=== PATIENT | female | born 1965 | race Caucasian/White ===

== ENCOUNTER → 2017-10-04 | Outpatient (CLI) | payer OTHER ==
[~2017-10-04] MED LIST: AMOXICILLIN 50500 MG PO; ATORVASTATIN CA40 MG PO; BRILINTA90 MG PO; LANTUS100 UNIT/M SUBQ; LISINOPRIL10 MG PO; LOPRESSOR25 PO; METFORMIN HCL500 MG PO; NITROGLYCERIN0.4 MG SUBLING; VICTOZA0.6 MG/0.1 SUBQ
[2017-10-04 09:39] LABS: CALCIUM 8.6 mg/dL (8.5-10.1); CREATININE 0.7 mg/dL (0.6-1.3); POTASSIUM 4.7 mmol/L (3.5-5.1)
== END ==
LOC: M.LAB 08:39
PROVIDERS: Nurse Practitioner
DX: I10 Essential (primary) hypertension (principal); E11.9 Type 2 diabetes mellitus without complications

== ENCOUNTER → 2017-11-15 | Outpatient (CLI) | payer OTHER ==
[2017-11-15 09:27] LABS: CALCIUM 8.3 mg/dL (8.5-10.1); CREATININE 0.8 mg/dL (0.6-1.3); POTASSIUM 4.1 mmol/L (3.5-5.1)
== END ==
LOC: M.LAB 08:40
PROVIDERS: Nurse Practitioner
DX: I10 Essential (primary) hypertension (principal); E78.5 Hyperlipidemia, unspecified; E11.9 Type 2 diabetes mellitus without complications

== ENCOUNTER → 2018-01-14 | Outpatient (CLI) | payer OTHER ==
[2018-01-14 09:25] LABS: ABSOLUTE EOSINOPHILS 0.2 thou/uL (0.0-0.7); ABSOLUTE LYMPHOCYTES 1.5 thou/uL (0.8-5.3); ABSOLUTE MONOCYTES 0.4 thou/uL (0.0-1.2); ABSOLUTE NEUTROPHILS 3.6 thou/uL (1.6-8.1); BASOPHILS 0.5 %; EOSINOPHILS 4.3 %; HEMATOCRIT 37.3 % (37.0-47.0); LYMPHOCYTES 26.3 %; MCH 28.7 pg (26.0-34.0); MCHC 32.2 g/dL (28.0-37.0); MCV 89.2 fL (80.0-100.0); MONOCYTES 7.1 %; NUCLEATED RBCS 0 /100WBC; PLATELET COUNT* 208 thou/uL (150-400); POLYS 61.8 %; RBC 4.18 mil/uL (4.20-5.00); RDW-CV 13.8 % (10.5-14.5); WBC 5.8 thou/uL (4.0-11.0)
[2018-01-14 09:39] LABS: CREATININE 0.8 mg/dL (0.6-1.3); POTASSIUM 4.9 mmol/L (3.5-5.1); TOTAL BILIRUBIN 0.2 mg/dL (<0.1-1.0); TOTAL PROTEIN 7.1 g/dL (6.4-8.2)
[2018-01-15 02:11] LABS: GLYCOHEMOGLOBIN (HGB A1C) 9.4 % (4.8-5.6)
== END ==
LOC: M.LAB 09:03
PROVIDERS: Family Medicine
DX: E11.9 Type 2 diabetes mellitus without complications (principal); I10 Essential (primary) hypertension; E78.5 Hyperlipidemia, unspecified; Z79.4 Long term (current) use of insulin

== ENCOUNTER → 2018-03-05 | Outpatient (CLI) | payer OTHER | LOC: M.MRI 13:00 | DX: S83.412A Sprain of medial collateral ligament of left knee, initial encounter (principal); S80.02XA Contusion of left knee, initial encounter; M22.42 Chondromalacia patellae, left knee; X58.XXXA Exposure to other specified factors, initial encounter; Y93.89 Activity, other specified; Y92.89 Other specified places as the place of occurrence of the external cause; Y99.8 Other external cause status ==

== ENCOUNTER 2019-06-13 11:49 | Emergency (ER) | payer OTHER ==
[~2019-06-13] VITALS: Ht 157.5 cm; Wt 79.4 kg
[2019-06-13] MEDS ORDERED: ASPIR 8181 M1 PO (12:07)
[2019-06-13] MEDS ORDERED: CLARITIN10 MG PO (12:07)
[2019-06-13] MEDS ORDERED: TRULICITY0.75 MG/0. SUBQ (12:07)
[2019-06-13] MEDS ORDERED: NOLVADEX20 MG PO (12:08)
[2019-06-13] MEDS ORDERED: KEFLEX250 M1 PO (12:25)
[2019-06-13 12:32] VITALS: BP 186/90
== END 2019-06-13 12:33 | disposition home or self-care (01) ==
LOC: M.ERS 11:49
DX: S61.012A Laceration without foreign body of left thumb without damage to nail, initial encounter (principal); E11.9 Type 2 diabetes mellitus without complications; G43.909 Migraine, unspecified, not intractable, without status migrainosus; W26.0XXA Contact with knife, initial encounter; Y93.89 Activity, other specified; Y92.89 Other specified places as the place of occurrence of the external cause; Y99.8 Other external cause status

== ENCOUNTER → 2019-07-22 | Outpatient (CLI) | payer OTHER ==
[~2019-07-22] MED LIST changes: +ASPIR 8181 M1 PO; +CLARITIN10 MG PO; +KEFLEX250 M1 PO; +NOLVADEX20 MG PO; +TRULICITY0.75 MG/0. SUBQ
--- NOTE | 2019-07-22 16:10 | CARDNUC ---
[place] [address] CARDIAC NUCLEAR IMAGING REPORT Name: Ricco CORONADOVONNJasmin Cifuentes Room: [facility]#: [id number] Admission: 07/22/19 Attend Phys: Faizan Dykes MD Discharge: Date of : 65 Date of Service: 07/22/19 1608 Report #: [id number] THIS REPORT FOR: cc: Nic Heath Vincent R. DO Liston,Chris Meyer MD [facility] ~ APPROVED REPORT Study performed: 07/22/2019 14:30:37 Exam: Nuclear Stress Test Indication: CAD Patient Location: Out-Patient Stress Tech: Daniela García Stress Nurse: Linda Amador RN Ht: 5 ft 2 in Wt: 174 lbs BSA: 1.80 m2 BMI: 31.82 Medical History Medical History: CAD s/p stent, HTN, Hyperlipidemia,, Diabetic Insulin Medications: asa-81, atorvastatin, lisinopril, metoprolol, ntg Allergies: glimiperide Cardiac Risk Factors: Hyperlipidemia, HTN, Diabetes (insulin), FHX of CAD Previous Cardiac Procedures: PCI Exercise History: Physically active Meds Held (24 hrs): metoprolol Stress Test Details Stress Test: Exercise stress testing was performed using a Gian protocol. HR Resting HR: 78 bpm Max Heart Rate (APMHR): 167 bpm Max HR Achieved: 158 bpm Target HR (85% APMHR): 141 bpm % of APMHR: 94 Recovery HR: 99 bpm BP Resting BP: 144/73 mmHg Max BP: 209/75 [place] [address] CARDIAC NUCLEAR IMAGING REPORT Name: LINDA CORONADO Room: [facility]#: [id number] Admission: 07/22/19 Attend Phys: Faizan Dykes MD Discharge: Date of : 65 Date of Service: 07/22/19 1608 Report #: [id number] Resting ECG: Sinus Rhythm Stress ECG: Sinus Tachycardia ST Change: None Arrhythmia: None Recovery ECG: Sinus Rhythm Recovery ST Change: None Recovery Arrhythmia: None Clinical Reason for Termination: Fatigue Exercise duration: 8 min 59 sec Exercise capacity: 10.16 METs Overall Exercise Capacity for Age: Reduced Functional Aerobic Impairment 95% The patient tolerated standard Gian protocol exercise without significant cardiac symptom. Patient exhibited average exercise tolerance. Stress ECG Conclusion Baseline twelve-lead EKG shows sinus rhythm without significant ST segment or T wave abnormality. EKGs obtained during and post exercise showed sinus rhythm and sinus tachycardia with no significant ST segment or T wave changes when compared to baseline. There were no stress-induced arrhythmias. NM EXAM: Myocardial Perfusion REST/STRESS Imaging Protocol: Rest Tc-99m/Stress Tc-99m 1 day Resting Data Rest SPECT myocardial perfusion imaging was performed in supine position 30 minutes following the intravenous injection of 10.0 mCi of Tc-99m Sestamibi. Time of rest injection: 13:00 The images were gated to evaluate regional wall motion and calculate left ventricular ejection fraction. Administration Route: IV Administration Site: Right Arm Exercise Stress At peak stress, the patient was injected intravenously with 29.2mCi of Tc-99m Sestamibi. Time of stress injection: 14:40 Administration Route: IV Administration Site: Right Arm Heart Rate at time of stress injection: [address] [place] [address] CARDIAC NUCLEAR IMAGING REPORT Name: IVONNELINDA Room: [facility]#: [id number] Admission: 07/22/19 Attend Phys: Faizan Dykes MD Discharge: Date of : 65 Date of Service: 07/22/19 1608 Report #: [id number] Gated Stress SPECT was performed 30 minutes after stress injection. The images were gated to evaluate regional wall motion and calculate left ventricular ejection fraction. Prone imaging was performed. Study Data At rest, the left ventricular ejection fraction was 81%.. Post stress, the left ventricular ejection was 74%.. TID = 1.10. Perfusion Perfusion images obtained at rest and post exercise stress showed uniform uptake of the radioisotope throughout the myocardium. There were no defects to suggest infarct or ischemia. Wall Motion Normal left ventricular wall motion. Nuclear Conclusion ECG Findings: negative for ischemia Clinical Findings: negative for ischemia Nuclear Findings: negative for ischemia Exercise Capacity: normal Left Ventricular Function: normal Risk Study: low Myocardial perfusion images show no defect to suggest infarct or ischemia. Left ventricular systolic function appears normal on gated studies. This is a low risk study. <Conclusion> Baseline twelve-lead EKG shows sinus rhythm without significant ST segment or T wave abnormality. EKGs obtained during and post exercise showed sinus rhythm and sinus tachycardia with no significant ST segment or T wave changes when compared to baseline. There were no stress-induced arrhythmias. <ELECTRONICALLY SIGNED> By: Chris Celaya MD, FACC 07/22/19 1608 1608 1608 Chris Celaya MD, FACC /INF
== END ==
LOC: M.NUC 02-25 10:07
DX: I25.10 Atherosclerotic heart disease of native coronary artery without angina pectoris (principal)